=== PATIENT | female | born 1990 | race Caucasian/White ===

== ENCOUNTER 2018-12-21 18:44 | Emergency (ER) | payer MEDICAID ==
[~2018-12-21] VITALS: Ht 157.5 cm; Wt 101.2 kg
[2018-12-21 19:22] VITALS: BP 125/80; Ht 157.5 cm; Wt 101.2 kg
[2018-12-21 20:44] LABS: microscopic required? NO
[2018-12-21 20:49] LABS: UA SPECIFIC GRAVITY >=1.030 (1.005-1.035); urine erythrocyte NEGATIVE (NEGATIVE)
== END 2018-12-21 21:36 | disposition home or self-care (01) ==
LOC: ED 18:44
PROVIDERS: Emergency Medicine
DX: M54.5 Low back pain (principal); R30.0 Dysuria; R35.0 Frequency of micturition
CPT/HCPCS: 87491; 87591; J1885